=== PATIENT | male | born 1975 | race Caucasian/White ===

== ENCOUNTER 2017-11-11 21:29 | Emergency (ER) | payer MEDICAID ==
[~2017-11-11] VITALS: Ht 172.7 cm; Wt 74.1 kg
[~2017-11-11 21:29] MED LIST: CEPH500C5 PO; CLIN-80 PO; CYCL-1 PO; FLO0.4C PO; FLUO20CA39 PO; HYDR-3965 PO; IBUP-1986 PO
[2017-11-11 21:37] VITALS: BP 124/82
[2017-11-11] MEDS ORDERED: AZIT-63 PO (22:06)
[2017-11-11] MEDS ORDERED: ALBU8HFA INH (22:06)
[2017-11-11] MEDS ORDERED: GUAI473S11 PO (22:06)
[2017-11-11] MEDS ORDERED: PRED20TA PO (22:06)
== END 2017-11-11 22:50 | disposition home or self-care (01) ==
LOC: ER 21:30
DX: J20.9 Acute bronchitis, unspecified (principal); F17.200 Nicotine dependence, unspecified, uncomplicated; F15.10 Other stimulant abuse, uncomplicated; F12.10 Cannabis abuse, uncomplicated; Z79.899 Other long term (current) drug therapy
CPT/HCPCS: 99283

== ENCOUNTER → 2017-11-28 | Emergency (ER) | payer MEDICAID ==
[~2017-11-28] VITALS: Ht 172.7 cm; Wt 74.2 kg
[~2017-11-28] MED LIST changes: +ALBU8HFA INH; +AZIT-63 PO; +GUAI473S11 PO; -HYDR-3965 PO; +HYDROcodone/acetaminophen 5mg/325mg tablet PO ONE; +PRED20TA PO; +ketorolac trometh inj. 60 MG/2 ML VIAL IM ONE
[2017-11-28 10:27] VITALS: BP 120/85
== END | disposition home or self-care (01) ==
LOC: ER 08:48
DX: M79.1 Myalgia (principal); F12.10 Cannabis abuse, uncomplicated; F15.10 Other stimulant abuse, uncomplicated; Z79.899 Other long term (current) drug therapy
CPT/HCPCS: 71045; 93005; 96372; 99284; J1885

== ENCOUNTER 2017-12-30 13:56 | Emergency (ER) | payer MEDICAID ==
[~2017-12-30 13:56] MED LIST changes: +ASPI-1071 PO; +ATOR20TA66 PO; -AZIT-63 PO; -CEPH500C5 PO; -CLIN-80 PO; +COR3.125T PO; -CYCL-1 PO; -FLO0.4C PO; -FLUO20CA39 PO; +FURO-150 PO; -GUAI473S11 PO; -HYDROcodone/acetaminophen 5mg/325mg tablet PO ONE; -IBUP-1986 PO; +LISI2.5T2 PO; +POTA20TA10 PO; -PRED20TA PO; +TIOT4MIS5; -ketorolac trometh inj. 60 MG/2 ML VIAL IM ONE
[2017-12-30 14:06] VITALS: BP 111/61
[2017-12-30] MEDS ORDERED: IBUP-1984 PO (15:43)
== END 2017-12-30 15:51 | disposition home or self-care (01) ==
LOC: ER 13:56
DX: M79.605 Pain in left leg (principal); F17.200 Nicotine dependence, unspecified, uncomplicated; F12.10 Cannabis abuse, uncomplicated; F15.10 Other stimulant abuse, uncomplicated; Z79.82 Long term (current) use of aspirin; Z79.899 Other long term (current) drug therapy; V89.2XXA Person injured in unspecified motor-vehicle accident, traffic, initial encounter; Y93.55 Activity, bike riding; Y92.488 Other paved roadways as the place of occurrence of the external cause; Y99.8 Other external cause status
CPT/HCPCS: 29505; 73564; 99284

== ENCOUNTER 2018-01-02 16:30 | Emergency (ER) | payer MEDICAID ==
[~2018-01-02] VITALS: Ht 172.7 cm; Wt 58.6 kg
[~2018-01-02 16:30] MED LIST changes: +IBUP-1984 PO
[2018-01-02 16:49] VITALS: BP 125/68
[2018-01-02 17:03] LABS: BASOPHILS % (AUTO) 0.2 % (0-1); EOSINOPHILS # (AUTO) 0.6 X10'3 (0-0.9); HEMATOCRIT 43.7 % (42.0-52.0); HEMOGLOBIN 15.1 g/dl (14.0-17.9); LYMPHOCYTES # (AUTO) 1.6 X10'3 (1.1-4.8); LYMPHOCYTES % (AUTO) 11.2 % (21-51); MEAN CORPUSCULAR HEMOGLOBIN 29.1 PG (27.0-31.0); MEAN CORPUSCULAR HGB CONC 34.5 % (33.0-36.5); MEAN CORPUSCULAR VOLUME 84.2 FL (78-98); MEAN PLATELET VOLUME 7.9 FL (7.4-10.4); MONOCYTES # (AUTO) 1.1 X10'3 (0-0.9); MONOCYTES % (AUTO) 7.4 % (2-12); NEUTROPHILS # (AUTO) 11.3 X10'3 (1.8-7.7); NEUTROPHILS % (AUTO) 77.2 % (42-75); PLATELET COUNT 303 X10'3 (140-440); RED BLOOD COUNT 5.19 X10'6 (4.70-6.10); RED CELL DISTRIBUTION WIDTH 14.2 % (11.5-14.5); WHITE BLOOD COUNT 14.6 X10'3 (4.5-11.0)
[2018-01-02 17:13] LABS: PARTIAL THROMBOPLASTIN TIME 29 SECONDS (22-32); PROTHROMBIN TIME 10.6 SECONDS (9.0-12.0)
[2018-01-02 17:19] LABS: ALANINE AMINOTRANSFERASE 33 U/L (12-78); ALBUMIN 3.9 G/DL (3.4-5.0); ALBUMIN/GLOBULIN RATIO 1.1 (1.1-1.5); ALKALINE PHOSPHATASE 91 IU/L (46-116); ANION GAP 9 (8-16); ASPARTATE AMINO TRANSFERASE 17 U/L (10-37); BILIRUBIN,TOTAL 0.6 MG/DL (0.1-1.0); BLOOD UREA NITROGEN 12 MG/DL (7-18); BUN/CREATININE RATIO 10.2 (5.4-32.0); CALCIUM 9.2 MG/DL (8.5-10.1); CHLORIDE 103 MMOL/L (99-107); CREATININE 1.18 MG/DL (0.60-1.10); GLUCOSE 118 MG/DL (70-104); POTASSIUM 3.8 MMOL/L (3.5-5.1); SODIUM 139 MMOL/L (135-145); TOTAL CARBON DIOXIDE 26.9 MMOL/L (24-32); TOTAL PROTEIN 7.6 G/DL (6.4-8.2); eGFR 68 ML/MIN
== END 2018-01-02 22:06 | disposition left against medical advice (07) ==
LOC: ER 16:31
DX: R06.02 Shortness of breath (principal); Z53.21 Procedure and treatment not carried out due to patient leaving prior to being seen by health care provider
CPT/HCPCS: 36415; 71045; 80053; 84484; 85025; 85610; 85730; 93005; 99281

== ENCOUNTER → 2018-03-21 | Emergency (ER) | payer MEDICAID ==
[~2018-03-21] VITALS: Ht 172.7 cm; Wt 68.1 kg
[~2018-03-21] MED LIST changes: +HYDR-565 PO; +HYDROmorphone 1 mg/ml syringe IM ONE; -IBUP-1984 PO; +iohexol 350MG/ML 100ml bottle IV ONE; +ondansetron/PF 4mg/2ml inj IV ONE
[2018-03-21 09:03] LABS: MEAN PLATELET VOLUME 7.4 FL (7.4-10.4)
[2018-03-21 09:06] LABS: HEMATOCRIT 39.8 % (42.0-52.0); HEMOGLOBIN 13.1 g/dl (14.0-17.9); MEAN CORPUSCULAR HEMOGLOBIN 27.9 PG (27.0-31.0); MEAN CORPUSCULAR VOLUME 84.5 FL (78-98); PLATELET COUNT 543 X10'3 (140-440); RED BLOOD COUNT 4.71 X10'6 (4.70-6.10); RED CELL DISTRIBUTION WIDTH 15.4 % (11.5-14.5); WHITE BLOOD COUNT 11.9 X10'3 (4.5-11.0)
[2018-03-21 09:17] LABS: ALANINE AMINOTRANSFERASE 72 U/L (12-78); ALBUMIN 3.2 G/DL (3.4-5.0); ALBUMIN/GLOBULIN RATIO 0.7 (1.1-1.5); ALKALINE PHOSPHATASE 93 IU/L (46-116); ANION GAP 10 (8-16); ASPARTATE AMINO TRANSFERASE 39 U/L (10-37); BILIRUBIN,TOTAL 0.5 MG/DL (0.1-1.0); BLOOD UREA NITROGEN 11 MG/DL (7-18); CALCIUM 9.2 MG/DL (8.5-10.1); CHLORIDE 102 MMOL/L (99-107); CREATININE 0.92 MG/DL (0.60-1.10); GLUCOSE 120 MG/DL (70-104); POTASSIUM 4.3 MMOL/L (3.5-5.1); SODIUM 139 MMOL/L (135-145); TOTAL CARBON DIOXIDE 26.8 MMOL/L (24-32); TOTAL PROTEIN 7.8 G/DL (6.4-8.2); eGFR 90 ML/MIN
[2018-03-21 09:19] LABS: CLARITY,URINE CLEAR (Clear); COLOR,URINE YELLOW (Yellow); GLUCOSE, URINE NEGATIVE (Neg); KETONES,URINE NEGATIVE (Neg); LEUKOCYTE ESTERASE ,URINE NEGATIVE (Neg); NITRITES, URINE NEGATIVE (Neg); OCCULT BLOOD,URINE NEGATIVE (Neg); PROTEIN,URINE NEGATIVE (Neg); UROBILINOGEN,URINE 0.2 E.U/dL (0.2-1.0)
[2018-03-21 09:22] LABS: INR 1.1 INR; PARTIAL THROMBOPLASTIN TIME 35 SECONDS (22-32); PROTHROMBIN TIME 11.4 SECONDS (9.0-12.0)
[2018-03-21 09:29] LABS: URINE AMPHETAMINE SCREEN NEGATIVE (Neg); URINE BARBITUATE SCREEN NEGATIVE (Neg); URINE BENZODIAZEPINES SCREEN NEGATIVE (Neg); URINE CANNABINOID SCREEN POSITIVE (Neg); URINE COCAINE SCREEN NEGATIVE (Neg); URINE METHADONE SCREEN NEGATIVE (Neg); URINE OPIATE SCREEN NEGATIVE (Neg); URINE PHENCYCLIDINE SCREEN NEGATIVE (Neg)
[2018-03-21 09:30] LABS: UA COLLECTION TYPE CLN CATCH MIDSTREAM
[2018-03-21 10:11] LABS: PLATELET ESTIMATE INCREASED; TOTAL CELLS COUNTED 100
[2018-03-21 12:21] VITALS: BP 119/76
== END | disposition home or self-care (01) ==
LOC: ER 08:28
DX: I31.3 Pericardial effusion (noninflammatory) (principal); J90 Pleural effusion, not elsewhere classified; I50.9 Heart failure, unspecified; F17.200 Nicotine dependence, unspecified, uncomplicated; F12.10 Cannabis abuse, uncomplicated; F15.10 Other stimulant abuse, uncomplicated; Z79.82 Long term (current) use of aspirin
CPT/HCPCS: 36415; 71045; 71275; 80053; 80305; 81003; 84484; 85025; 85379; 85610; 85730; 93005; 93306; 96374; 96375; 99285; J1170; J2405; J7030; Q9967

== ENCOUNTER 2019-03-23 12:14 | Emergency (ER) | payer MEDICAID ==
[~2019-03-23] VITALS: Ht 172.7 cm; Wt 84.1 kg
[~2019-03-23 12:14] MED LIST changes: -HYDR-565 PO; -HYDROmorphone 1 mg/ml syringe IM ONE; -iohexol 350MG/ML 100ml bottle IV ONE; -ondansetron/PF 4mg/2ml inj IV ONE
[2019-03-23 12:52] LABS: BASOPHILS # (AUTO) 0.1 X10'3 (0-0.2); EOSINOPHILS # (AUTO) 0.4 X10'3 (0-0.9); EOSINOPHILS % (AUTO) 2.8 % (0-6); HEMATOCRIT 43.5 % (42.0-52.0); HEMOGLOBIN 15.2 g/dl (14.0-17.9); LYMPHOCYTES # (AUTO) 3.4 X10'3 (1.1-4.8); LYMPHOCYTES % (AUTO) 23.1 % (21-51); MEAN CORPUSCULAR HEMOGLOBIN 29.6 PG (27.0-31.0); MEAN CORPUSCULAR HGB CONC 34.8 g/dL (33.0-36.5); MEAN CORPUSCULAR VOLUME 85.1 FL (78-98); MEAN PLATELET VOLUME 8.6 FL (7.4-10.4); MONOCYTES # (AUTO) 1.1 X10'3 (0-0.9); MONOCYTES % (AUTO) 7.7 % (2-12); NEUTROPHILS # (AUTO) 9.7 X10'3 (1.8-7.7); NEUTROPHILS % (AUTO) 65.4 % (42-75); PLATELET COUNT 248 X10'3 (140-440); RED BLOOD COUNT 5.12 X10'6 (4.70-6.10); RED CELL DISTRIBUTION WIDTH 13.1 % (11.5-14.5); WHITE BLOOD COUNT 14.8 X10'3 (4.5-11.0)
[2019-03-23 13:10] LABS: ALANINE AMINOTRANSFERASE 25 U/L (12-78); ALBUMIN 3.8 G/DL (3.4-5.0); ALBUMIN/GLOBULIN RATIO 1.1 (1.1-1.5); ALKALINE PHOSPHATASE 101 IU/L (46-116); ANION GAP 4 (8-16); ASPARTATE AMINO TRANSFERASE 12 U/L (10-37); BILIRUBIN,TOTAL 0.6 MG/DL (0.1-1.0); BLOOD UREA NITROGEN 10 MG/DL (7-18); BUN/CREATININE RATIO 9.6 (5.4-32.0); CHLORIDE 104 MMOL/L (99-107); CREATININE 1.04 MG/DL (0.60-1.10); GLUCOSE 93 MG/DL (70-104); POTASSIUM 4.6 MMOL/L (3.5-5.1); SODIUM 136 MMOL/L (135-145); TOTAL CARBON DIOXIDE 28.3 MMOL/L (24-32); TOTAL PROTEIN 7.3 G/DL (6.4-8.2); eGFR 78 ML/MIN
[2019-03-23 13:11] LABS: PARTIAL THROMBOPLASTIN TIME 36 SECONDS (22-32)
[2019-03-23] MEDS ORDERED: TRAM50TA2 PO (14:44)
[2019-03-23 15:10] VITALS: BP 105/71
== END 2019-03-23 15:11 | disposition home or self-care (01) ==
LOC: ER 12:14
DX: G89.29 Other chronic pain (principal); M25.512 Pain in left shoulder; I50.9 Heart failure, unspecified; F12.90 Cannabis use, unspecified, uncomplicated; F15.90 Other stimulant use, unspecified, uncomplicated; Z86.711 Personal history of pulmonary embolism; Z79.82 Long term (current) use of aspirin; Z79.899 Other long term (current) drug therapy
CPT/HCPCS: 36415; 71045; 80053; 84484; 85025; 85610; 85730; 93005; 99284

== ENCOUNTER 2020-01-27 19:29 | Emergency (ER) | payer MEDICAID ==
[~2020-01-27] VITALS: Ht 172.7 cm; Wt 0.9 kg
[2020-01-27] MEDS ORDERED: ketorolac tromethamine 15mg/ml inj. IM ONE (21:05)
[2020-01-27 21:23] LABS: EOSINOPHILS # (AUTO) 0.3 X10'3 (0-0.9); EOSINOPHILS % (AUTO) 2.4 % (0-6); HEMOGLOBIN 14.8 g/dl (14.0-17.9); MEAN CORPUSCULAR HGB CONC 33.6 g/dL (33.0-36.5); MONOCYTES # (AUTO) 1.1 X10'3 (0-0.9); PLATELET COUNT 223 X10'3 (140-440); RED BLOOD COUNT 5.09 X10'6 (4.70-6.10)
[2020-01-27 21:24] LABS: BASOPHILS # (AUTO) 0.2 X10'3 (0-0.2); BASOPHILS % (AUTO) 1.2 % (0-1); HEMATOCRIT 44.2 % (42.0-52.0); LYMPHOCYTES % (AUTO) 22.2 % (21-51); MEAN CORPUSCULAR HEMOGLOBIN 29.1 PG (27.0-31.0); MEAN CORPUSCULAR VOLUME 86.8 FL (78-98); MONOCYTES % (AUTO) 8.3 % (2-12); NEUTROPHILS % (AUTO) 65.9 % (42-75); RED CELL DISTRIBUTION WIDTH 14.1 % (11.5-14.5); WHITE BLOOD COUNT 13.6 X10'3 (4.5-11.0)
[2020-01-27 21:36] LABS: ALANINE AMINOTRANSFERASE 22 U/L (12-78); ALBUMIN 3.9 G/DL (3.4-5.0); ALBUMIN/GLOBULIN RATIO 1.3 (1.1-1.5); ALKALINE PHOSPHATASE 95 IU/L (46-116); ANION GAP 9 (8-16); ASPARTATE AMINO TRANSFERASE 5 U/L (10-37); BILIRUBIN,TOTAL 0.2 MG/DL (0.1-1.0); BLOOD UREA NITROGEN 15 MG/DL (7-18); CALCIUM 8.8 MG/DL (8.5-10.1); CHLORIDE 108 MMOL/L (99-107); CREATININE 1.07 MG/DL (0.60-1.10); GLUCOSE 103 MG/DL (70-104); POTASSIUM 3.8 MMOL/L (3.5-5.1); SODIUM 143 MMOL/L (135-145); TOTAL CARBON DIOXIDE 25.9 MMOL/L (24-32); eGFR 75 ML/MIN
[2020-01-27] MEDS ORDERED: morphine 2 MG/ML inj. syringe IV ONE ×3 (21:55→23:20)
[2020-01-27] MEDS ORDERED: iohexol 300mg/ml 100ml inj. ONE (22:04)
[2020-01-27] MEDS ORDERED: AMOX-117 PO (23:58)
[2020-01-27] MEDS ORDERED: IBUP-1984 PO (23:58)
[2020-01-28 00:06] VITALS: BP 125/77
== END 2020-01-28 00:07 | disposition home or self-care (01) ==
LOC: ER 19:29
DX: M54.2 Cervicalgia (principal); I50.9 Heart failure, unspecified; F15.90 Other stimulant use, unspecified, uncomplicated; F12.90 Cannabis use, unspecified, uncomplicated; Z86.711 Personal history of pulmonary embolism; Z72.89 Other problems related to lifestyle; Z79.01 Long term (current) use of anticoagulants; Z79.82 Long term (current) use of aspirin; Z79.899 Other long term (current) drug therapy
CPT/HCPCS: 36415; 70491; 80053; 85025; 96372; 96374; 96376; 99285; J1885; J2270; Q9967

== ENCOUNTER 2021-03-27 17:46 | Emergency (ER) | payer MEDICAID ==
[~2021-03-27] VITALS: Ht 172.7 cm; Wt 80.5 kg
[2021-03-27] MEDS ORDERED: acetaminophen 325mg tablet PO ONE (18:35)
[2021-03-27] MEDS ORDERED: hydrOXYzine 25 MG tablet PO ONE (18:35)
[2021-03-27] MEDS ORDERED: aspirin 325mg tablet PO ONE (18:35)
[2021-03-27 18:44] LABS: ALANINE AMINOTRANSFERASE 35 U/L (12-78); ALBUMIN 3.6 G/DL (3.4-5.0); ALKALINE PHOSPHATASE 110 IU/L (46-116); ANION GAP 12 (8-16); ASPARTATE AMINO TRANSFERASE 13 U/L (10-37); BILIRUBIN,TOTAL 0.6 MG/DL (0.1-1.0); BLOOD UREA NITROGEN 11 MG/DL (7-18); BUN/CREATININE RATIO 12.6 (5.4-32.0); CALCIUM 8.6 MG/DL (8.5-10.1); CHLORIDE 102 MMOL/L (99-107); CREATININE 0.87 MG/DL (0.60-1.10); GLUCOSE 100 MG/DL (70-104); SODIUM 140 MMOL/L (135-145); TOTAL CARBON DIOXIDE 26.4 MMOL/L (24-32); TOTAL PROTEIN 7.2 G/DL (6.4-8.2); eGFR > 90 ML/MIN
[2021-03-27 18:56] LABS: BASOPHILS # (AUTO) 0.1 X10'3 (0-0.2); BASOPHILS % (AUTO) 0.7 % (0-1); EOSINOPHILS # (AUTO) 0.5 X10'3 (0-0.9); HEMATOCRIT 41.5 % (42.0-52.0); HEMOGLOBIN 14.2 g/dl (14.0-17.9); MEAN CORPUSCULAR HEMOGLOBIN 30.4 PG (27.0-31.0); MEAN CORPUSCULAR HGB CONC 34.1 g/dL (33.0-36.5); MEAN CORPUSCULAR VOLUME 88.9 FL (78-98); MEAN PLATELET VOLUME 8.5 FL (7.4-10.4); MONOCYTES # (AUTO) 1.3 X10'3 (0-0.9); MONOCYTES % (AUTO) 10.1 % (2-12); NEUTROPHILS # (AUTO) 7.4 X10'3 (1.8-7.7); NEUTROPHILS % (AUTO) 55.2 % (42-75); PLATELET COUNT 267 X10'3 (140-440); RED BLOOD COUNT 4.67 X10'6 (4.70-6.10); RED CELL DISTRIBUTION WIDTH 13.7 % (11.5-14.5); WHITE BLOOD COUNT 13.3 X10'3 (4.5-11.0)
[2021-03-27 19:56] VITALS: BP 112/69
== END 2021-03-27 20:09 | disposition home or self-care (01) ==
LOC: ER 17:47
DX: R07.89 Other chest pain (principal); R06.02 Shortness of breath; I50.9 Heart failure, unspecified; F12.90 Cannabis use, unspecified, uncomplicated; F15.90 Other stimulant use, unspecified, uncomplicated; Z86.711 Personal history of pulmonary embolism; Z72.89 Other problems related to lifestyle; Z79.82 Long term (current) use of aspirin; Z79.899 Other long term (current) drug therapy
CPT/HCPCS: 36415; 71045; 80053; 83880; 84484; 85025; 85379; 93005; 99285; Q0177

== ENCOUNTER 2022-11-01 10:27 | Emergency (ER) | payer MEDICAID ==
[~2022-11-01] VITALS: Ht 172.7 cm; Wt 81.8 kg
[~2022-11-01 10:27] MED LIST changes: +LISI2.5T14 PO; -LISI2.5T2 PO; +POTA-197 PO; -POTA20TA10 PO
[2022-11-01 10:32] VITALS: BP 122/77
[2022-11-01] MEDS ORDERED: SACU1TAB PO (11:13)
[2022-11-01] MEDS ORDERED: amox tr/potassium clavulanate 500mg/125mg TAB PO ONE (11:55)
[2022-11-01] MEDS ORDERED: ketorolac trometh. 30mg/ml inj. IM ONE (11:55)
[2022-11-01] MEDS ORDERED: OXYcodone (OXYCONTIN) Ext Release 15 MG TAB.SR.12H PO ONE (11:55)
[2022-11-01] MEDS ORDERED: ondansetron 4mg rapidly disintigrating tab PO ONE (11:55)
[2022-11-01] MEDS ORDERED: DOXYCYCLINE 100MG CAPSULE PO STA (11:55)
[2022-11-01] MEDS ORDERED: MELO-100 PO (12:02)
[2022-11-01] MEDS ORDERED: AMOX-419 PO (12:02)
[2022-11-01] MEDS ORDERED: ONDA8TAB13 PO (12:02)
[2022-11-01] MEDS ORDERED: DOXY100C76 PO (12:02)
== END 2022-11-01 12:38 | disposition home or self-care (01) ==
LOC: ER 10:27
DX: L03.211 Cellulitis of face (principal); K13.0 Diseases of lips; I50.9 Heart failure, unspecified; F12.90 Cannabis use, unspecified, uncomplicated; F15.90 Other stimulant use, unspecified, uncomplicated; Z72.89 Other problems related to lifestyle; Z86.711 Personal history of pulmonary embolism; Z79.82 Long term (current) use of aspirin; Z79.899 Other long term (current) drug therapy
CPT/HCPCS: 96372; 99283; J1885

== ENCOUNTER 2022-11-02 09:40 | Emergency (ER) | payer MEDICAID ==
[~2022-11-02 09:40] MED LIST changes: +AMOX-419 PO; -ASPI-1071 PO; -ATOR20TA66 PO; +DOXY100C76 PO; -FURO-150 PO; +MELO-100 PO; +ONDA8TAB13 PO; -POTA-197 PO; +SACU1TAB PO
[2022-11-03] MEDS ORDERED: ACYC-1 PO (14:52)
== END 2022-11-02 11:27 | disposition left against medical advice (07) ==
LOC: ER 09:40
DX: R22.0 Localized swelling, mass and lump, head (principal); Z53.21 Procedure and treatment not carried out due to patient leaving prior to being seen by health care provider

== ENCOUNTER 2022-11-03 10:19 | Emergency (ER) | payer MEDICAID ==
[~2022-11-03] VITALS: Ht 172.7 cm; Wt 92.0 kg
--- NOTE | 2022-11-03 10:43 | NUR ---
first contact. pt is ao4 speaks clearly denies issues swallowing. affected area is bottom lip rt side and affects jawline. pt also has swelling on neck. soft to palp.
[2022-11-03] MEDS ORDERED: ketorolac trometh. 30mg/ml inj. IV ONE (11:50)
[2022-11-03] MEDS ORDERED: acyclovir 200 MG capsule PO ONE (11:50)
[2022-11-03] MEDS ORDERED: acetaminophen 325mg tablet PO ONE (11:50)
[2022-11-03] MEDS ORDERED: iohexol 300mg/ml 100ml inj. ONE (11:53)
[2022-11-03] MEDS ORDERED: ACYC-1 PO (14:52)
[2022-11-03 15:04] VITALS: BP 109/59
== END 2022-11-03 15:06 | disposition home or self-care (01) ==
LOC: ER 10:20
DX: B00.9 Herpesviral infection, unspecified (principal); K04.7 Periapical abscess without sinus; I50.9 Heart failure, unspecified; F15.20 Other stimulant dependence, uncomplicated; F12.90 Cannabis use, unspecified, uncomplicated
CPT/HCPCS: 70491; 96374; 99285; J1885; J3490; J7030; Q9967

== ENCOUNTER 2022-12-27 14:51 | Emergency (ER) | payer MEDICAID ==
[~2022-12-27 14:51] MED LIST changes: -AMOX-419 PO; -DOXY100C76 PO
[2022-12-28] MEDS ORDERED: HYDR-3965 PO (13:24)
== END 2022-12-28 01:25 | disposition left against medical advice (07) ==
LOC: ER 14:51
DX: M79.603 Pain in arm, unspecified (principal); Z53.21 Procedure and treatment not carried out due to patient leaving prior to being seen by health care provider

== ENCOUNTER 2022-12-28 09:21 | Emergency (ER) | payer MEDICAID ==
[~2022-12-28] VITALS: Ht 172.7 cm; Wt 93.0 kg
[2022-12-28 09:51] VITALS: BP 108/72
--- NOTE | 2022-12-28 10:13 | NUR ---
SPOKE WITH MD REGARDING PT BEING ON THINNERS AND HITTING HIS HEAD. VERBAL FOR HEAD CT
[2022-12-28] MEDS ORDERED: HYDROcodone/acetaminophen 10/325mg tab PO ONE (13:15)
[2022-12-28] MEDS ORDERED: HYDR-3965 PO (13:24)
== END 2022-12-28 13:51 | disposition home or self-care (01) ==
LOC: ER 09:22
DX: S60.221A Contusion of right hand, initial encounter (principal); W18.39XA Other fall on same level, initial encounter; Y93.89 Activity, other specified; Y92.89 Other specified places as the place of occurrence of the external cause; Y99.8 Other external cause status
CPT/HCPCS: 29125; 70450; 73130; 99284; A6449

== ENCOUNTER 2023-02-10 13:49 | Emergency (ER) | payer MEDICAID ==
[~2023-02-10] VITALS: Ht 172.7 cm; Wt 95.0 kg
[~2023-02-10 13:49] MED LIST changes: -TIOT4MIS5; +TIOT4MIS5 IH
[2023-02-10 13:52] VITALS: BP 107/79
[2023-02-10] MEDS ORDERED: LIDOcaine 1% W/epiNEPHrine 1:100,000 20ml vial SQ ONE (15:30)
[2023-02-10] MEDS ORDERED: CEPH500C81 PO ×2 (16:17)
[2023-02-10] MEDS ORDERED: SULF1TAB49 PO ×2 (16:17)
[2023-02-10] MEDS ORDERED: cephalexin 500mg capsule PO ONE (16:20)
[2023-02-10] MEDS ORDERED: sulfamethoxazole/trimethoprim DS (800/160mg) tablet PO ONE (16:20)
[2023-02-11] MEDS ORDERED: CARV6.253 PO (12:48)
[2023-02-11] MEDS ORDERED: OLAN20TA34 PO (12:49)
[2023-02-11] MEDS ORDERED: SERT-434 PO (12:50)
[2023-02-11] MEDS ORDERED: HYDR-3972 PO (12:50)
[2023-02-11] MEDS ORDERED: ATOR40TA72 PO (12:50)
[2023-02-11] MEDS ORDERED: PANT20TA18 PO (12:51)
[2023-02-11] MEDS ORDERED: SERT-433 PO (12:51)
[2023-02-11] MEDS ORDERED: APIX5TAB3 PO (12:53)
[2023-02-11] MEDS ORDERED: ERGO500093 PO (12:54)
== END 2023-02-10 16:40 | disposition home or self-care (01) ==
LOC: ER 13:49
DX: L02.416 Cutaneous abscess of left lower limb (principal); B35.6 Tinea cruris; I50.9 Heart failure, unspecified; F12.10 Cannabis abuse, uncomplicated; F15.10 Other stimulant abuse, uncomplicated; Z79.899 Other long term (current) drug therapy; Z79.1 Long term (current) use of non-steroidal anti-inflammatories (NSAID); Z79.2 Long term (current) use of antibiotics
CPT/HCPCS: 10060; 99284; A6449

== ENCOUNTER 2023-02-11 07:59 | Inpatient (IN) | payer MEDICAID ==
[~2023-02-11] VITALS: Ht 172.7 cm; Wt 95.5 kg
[~2023-02-11 07:59] MED LIST changes: +CEPH500C81 PO; +SULF1TAB49 PO
[2023-02-11] MEDS ORDERED: LIDOcaine 1% W/epiNEPHrine 1:100,000 20ml vial IJ ONE (08:40)
--- NOTE | 2023-02-11 08:46 | NUR ---
MD DR ROSA AT BEDSIDE.
[2023-02-11 09:09] LABS: BASOPHILS # (AUTO) 0.1 X10'3 (0-0.2); BASOPHILS % (AUTO) 0.4 % (0-1); EOSINOPHILS # (AUTO) 0.3 X10'3 (0-0.9); EOSINOPHILS % (AUTO) 1.4 % (0-6); HEMATOCRIT 40.7 % (42.0-52.0); LYMPHOCYTES # (AUTO) 2.3 X10'3 (1.1-4.8); LYMPHOCYTES % (AUTO) 12.3 % (21-51); MEAN CORPUSCULAR HEMOGLOBIN 30.3 PG (27.0-31.0); MEAN CORPUSCULAR HGB CONC 34.3 g/dL (33.0-36.5); MEAN CORPUSCULAR VOLUME 88.3 FL (78-98); MEAN PLATELET VOLUME 8.7 FL (7.4-10.4); MONOCYTES # (AUTO) 1.4 X10'3 (0-0.9); MONOCYTES % (AUTO) 7.4 % (2-12); NEUTROPHILS # (AUTO) 14.5 X10'3 (1.8-7.7); NEUTROPHILS % (AUTO) 78.5 % (42-75); PLATELET COUNT 214 X10'3 (140-440); RED BLOOD COUNT 4.61 X10'6 (4.70-6.10); RED CELL DISTRIBUTION WIDTH 13.9 % (11.5-14.5); WHITE BLOOD COUNT 18.4 X10'3 (4.5-11.0)
[2023-02-11] MEDS ORDERED: vancomycin/NS 1 GM ADD-VANTAGE 250 ML IV ONE (09:15)
[2023-02-11] MEDS ORDERED: piperacillin/tazo 3.375gm/50ml 50 ML IV ONE (09:15)
[2023-02-11] MEDS ORDERED: normal saline 1000ML IV soln IVB ONE (09:15)
[2023-02-11 09:25] LABS: ALANINE AMINOTRANSFERASE 22 U/L (12-78); ALBUMIN 4.1 G/DL (3.4-5.0); ALBUMIN/GLOBULIN RATIO 1.1 (1.1-1.5); ALKALINE PHOSPHATASE 94 IU/L (46-116); ANION GAP 12 (8-16); ASPARTATE AMINO TRANSFERASE 10 U/L (10-37); BILIRUBIN,TOTAL 0.9 MG/DL (0.1-1.0); BLOOD UREA NITROGEN 14 MG/DL (7-18); BUN/CREATININE RATIO 14.3 (10.0-20.0); CALCIUM 9.1 MG/DL (8.5-10.1); CHLORIDE 103 MMOL/L (99-107); CREATININE 0.98 MG/DL (0.60-1.10); GLUCOSE 116 MG/DL (70-104); POTASSIUM 3.8 MMOL/L (3.5-5.1); SODIUM 140 MMOL/L (135-145); TOTAL CARBON DIOXIDE 24.6 MMOL/L (24-32); TOTAL PROTEIN 7.8 G/DL (6.4-8.2); eGFR 82 ML/MIN
--- NOTE | 2023-02-11 10:29 | NUR ---
2ND RN AT BEDSIDE TRYING TO OBTAIN IV.
[2023-02-11] MEDS ORDERED: magnesium hydroxide 30ml (MOM) UD suspension PO PRN (10:45)
[2023-02-11] MEDS ORDERED: HYDROcodone/acetaminophen 5mg/325mg tablet PO PRN (10:45)
[2023-02-11] MEDS ORDERED: HYDROmorphone inj. 0.5 MG/0.5 ML DISP.SYRIN IV PRN (10:45)
[2023-02-11] MEDS ORDERED: potassium Cl 40MEQ/1/2NS 520ml 520 ML IV PRN (10:45)
[2023-02-11] MEDS ORDERED: magnesium Cl slow-release 64mg tablet PO PRN (10:45)
[2023-02-11] MEDS ORDERED: potassium Cl 20 mEq SR tablet PO PRN ×2 (10:45)
[2023-02-11] MEDS ORDERED: HYDROmorphone/PF 0.2 MG/ML SYRINGE IV PRN (10:45)
[2023-02-11] MEDS ORDERED: magnesium 2GM in 50ml NS 50 ML IV PRN (10:45)
[2023-02-11] MEDS ORDERED: mag hydrox/Alum hydrox/simeth 30ml oral suspension PO PRN (10:45)
[2023-02-11] MEDS ORDERED: ondansetron 4mg rapidly disintigrating tab PO PRN (10:45)
[2023-02-11] MEDS ORDERED: acetaminophen 325mg tablet PO PRN ×2 (10:45)
[2023-02-11] MEDS ORDERED: HYDROcodone/acetaminophen 10/325mg tab PO PRN (10:45)
[2023-02-11] MEDS ORDERED: normal saline 1000ml 1,000 ML IV SCH (10:45)
[2023-02-11] MEDS ORDERED: acetaminophen 650mg rectal suppository RC PRN (10:45)
[2023-02-11] MEDS ORDERED: ondansetron/PF 4mg/2ml inj IV PRN (10:45)
[2023-02-11] MEDS ORDERED: magnesium 4gm in 100ml NS 100 ML IV PRN (10:45)
--- NOTE | 2023-02-11 10:46 | NUR ---
RN COULD NOT SCAN FOR ZOSYN AND NS REQ [place] FROM REGISTRATION.
[2023-02-11] MEDS ORDERED: iohexol 300mg/ml 100ml inj. ONE (11:11)
[2023-02-11 11:18] LABS: APTT 31 SECONDS (22-32)
--- NOTE | 2023-02-11 11:38 | NUR ---
PT RECD ZOSYN PRIOR TO VANCO D/T CAUTION WITH COMPATIBILITY. RN NOTIFIED PHARM TO RETIME VANCOMYCIN.
[2023-02-11] MEDS ORDERED: VANCOmycin 1250MG/NS 250ml Bag 250 ML IV SCH (12:00)
--- NOTE | 2023-02-11 12:03 | NUR ---
RN PAGED DR BARBER REQ ARI PATCH AND ANXIETY MED FOR PT.
--- NOTE | 2023-02-11 12:10 | NUR ---
RN PAGED DR BARBER TO REQ ANXIETY MED AND ARI PATCH FOR PT.
--- NOTE | 2023-02-11 12:46 | NUR ---
RN CLEANED LEFT HIP WITH IODINE AND APPLIED A NON STICK BANDAGE.
[2023-02-11] MEDS ORDERED: CARV6.253 PO (12:48)
[2023-02-11] MEDS ORDERED: OLAN20TA34 PO (12:49)
[2023-02-11] MEDS ORDERED: SERT-434 PO (12:50)
[2023-02-11] MEDS ORDERED: HYDR-3972 PO (12:50)
[2023-02-11] MEDS ORDERED: ATOR40TA72 PO (12:50)
[2023-02-11] MEDS ORDERED: SERT-433 PO (12:51)
[2023-02-11] MEDS ORDERED: PANT20TA18 PO (12:51)
[2023-02-11 12:53] VITALS: BP 132/82
[2023-02-11] MEDS ORDERED: APIX5TAB3 PO (12:53)
[2023-02-11] MEDS ORDERED: ERGO500093 PO (12:54)
--- NOTE | 2023-02-11 12:57 | NUR ---
PT VERY ANXIOUS AND STATING HE MAY LEAVE AMA. RN EDUCATED HIM ON THE RISKS ASSOCIATED WITH LEAVING AMA AND NOT GETTING A RX FOR ANTIBIOTICS AND HE VERBALIZED UNDERSTANDING. PT AGREED TO STAY UNTIL [place] DONE INFUSING. RN PAGED DR BARBER THAT PT IS ANXIOUS AND MAY LEAVE AMA.
[2023-02-11] MEDS ORDERED: nicotine 14mg patch - 24hr TD ONE (13:20)
[2023-02-11] MEDS ORDERED: sertraline 50mg tablet PO SCH ×2 (13:20→13:34)
[2023-02-11] MEDS ORDERED: LORazepam 2 mg/ml vial IV PRN (13:20)
[2023-02-11] MEDS ORDERED: LORazepam 1 MG tablet PO PRN (13:20)
--- NOTE | 2023-02-11 14:19 | NUR ---
RN UNABLE TO USE SCANNER EVEN AFTER GETTING NEW ID BAND FROM REG. REQ [facility]ONA CONTACT IT.
--- NOTE | 2023-02-11 14:25 | NUR ---
PT WANTS TO SIGN AMA FORM AND LEAVE DESPITE BEING EDUCATED BY RN ABOUT RISKS OF NOT GETTING ANTIBIOTICS. RN PAGED DR BARBER TO NOTIFY HIM. PAGED MESSAGE AND PAGED TO CALL ED BACK.
--- NOTE | 2023-02-11 14:28 | NUR ---
PER DR BARBER HE CALLED BACK AND STATED THAT HE CAN NOT COME SIGN THE FORM NOW AND RN MAY TAKE A VERBAL
[2023-02-11] MEDS ORDERED: piperacillin/tazo 3.375gm/50ml 50 ML IV SCH (16:00)
[2023-02-11] MEDS ORDERED: K and/or MAG REPLACEMENT MC SCH (20:00)
[2023-02-11] MEDS ORDERED: HYDROcodone/acetaminophen 10/325mg tab PO SCH (20:00)
[2023-02-11] MEDS ORDERED: docusate sod 100mg capsule PO SCH (20:00)
[2023-02-11] MEDS ORDERED: sacubitril/valsartan 24mg-26mg tablet PO SCH (20:00)
[2023-02-11] MEDS ORDERED: carvedilol 6.25mg tablet PO SCH (20:00)
[2023-02-11] MEDS ORDERED: temazepam 15mg capsule PO PRN (21:00)
[2023-02-12] MEDS ORDERED: ipratropium 0.5 MG/2.5ML nebule NEB SCH (08:00)
[2023-02-12] MEDS ORDERED: pantoprazole 40mg Tablet.DR PO SCH (08:00)
[2023-02-12] MEDS ORDERED: atorvastatin 20mg tablet PO SCH (08:00)
[2023-02-12] MEDS ORDERED: nicotine 14mg patch - 24hr TD SCH (08:00)
[2023-02-12] MEDS ORDERED: sertraline 50mg tablet PO SCH (08:00)
[2023-02-12] MEDS ORDERED: VANCOMYCIN LEVEL IV ONE (23:30)
== END 2023-02-11 14:30 | disposition left against medical advice (07) | DRG 383 ==
LOC: ER 08:00 → ED HOLD 10:54
PROVIDERS: ADMIT Family Medicine; ATTEND Family Medicine
PROC: 0Y9D0ZZ Drainage of Left Upper Leg, Open Approach (ICD-10-PCS; principal; 2023-02-11)
PROC: BQ2S1ZZ Computerized Tomography (CT Scan) of Left Lower Extremity using Low Osmolar Contrast (ICD-10-PCS; 2023-02-11)
DX: L03.116 Cellulitis of left lower limb (principal); I50.9 Heart failure, unspecified; F17.210 Nicotine dependence, cigarettes, uncomplicated; F41.1 Generalized anxiety disorder; Z53.29 Procedure and treatment not carried out because of patient's decision for other reasons; Z60.2 Problems related to living alone; K29.70 Gastritis, unspecified, without bleeding; I48.91 Unspecified atrial fibrillation; J44.9 Chronic obstructive pulmonary disease, unspecified; Z79.01 Long term (current) use of anticoagulants; Z86.711 Personal history of pulmonary embolism; Z86.73 Personal history of transient ischemic attack (TIA), and cerebral infarction without residual deficits; Z79.899 Other long term (current) drug therapy; Z71.6 Tobacco abuse counseling
CPT/HCPCS: 36415; 73701; 80053; 83605; 84145; 85025; 85610; 85730; 87040; 96365; 99285; A6258; A6266; A6449; G0378; J2405; J2543; J3370; J3490; J7030; Q9967

== ENCOUNTER 2023-11-25 11:07 | Emergency (ER) | payer MEDICAID ==
[~2023-11-25] VITALS: Ht 172.7 cm; Wt 107.1 kg
[~2023-11-25 11:07] MED LIST changes: -ALBU8HFA INH; +APIX5TAB3 PO; +ATOR40TA72 PO; +CARV6.253 PO; -CEPH500C81 PO; -COR3.125T PO; +ERGO500093 PO; +HYDR-3972 PO; -LISI2.5T14 PO; -MELO-100 PO; +OLAN20TA34 PO; -ONDA8TAB13 PO; +PANT20TA18 PO; +SERT-433 PO; +SERT-434 PO; -SULF1TAB49 PO
[2023-11-25 14:36] LABS: BASOPHILS # (AUTO) 0.1 X10'3 (0-0.2); BASOPHILS % (AUTO) 1.2 % (0-1); EOSINOPHILS # (AUTO) 0.6 X10'3 (0-0.9); EOSINOPHILS % (AUTO) 5.9 % (0-6); HEMATOCRIT 36.2 % (42.0-52.0); HEMOGLOBIN 12.2 g/dl (14.0-17.9); LYMPHOCYTES % (AUTO) 30.6 % (21-51); MEAN CORPUSCULAR HEMOGLOBIN 28.7 PG (27.0-31.0); MEAN CORPUSCULAR HGB CONC 33.7 g/dL (33.0-36.5); MEAN CORPUSCULAR VOLUME 85.2 FL (78-98); MONOCYTES # (AUTO) 0.7 X10'3 (0-0.9); MONOCYTES % (AUTO) 6.8 % (2-12); NEUTROPHILS # (AUTO) 5.4 X10'3 (1.8-7.7); NEUTROPHILS % (AUTO) 55.5 % (42-75); PLATELET COUNT 193 X10'3 (140-440); RED BLOOD COUNT 4.25 X10'6 (4.70-6.10); RED CELL DISTRIBUTION WIDTH 15.9 % (11.5-14.5); WHITE BLOOD COUNT 9.8 X10'3 (4.5-11.0)
[2023-11-25 14:59] LABS: ALBUMIN 3.6 G/DL (3.4-5.0); ANION GAP 6 (8-16); BLOOD UREA NITROGEN 10 MG/DL (7-18); BUN/CREATININE RATIO 11.8 (10.0-20.0); CALCIUM 8.2 MG/DL (8.5-10.1); CHLORIDE 107 MMOL/L (99-107); CREATININE 0.85 MG/DL (0.60-1.10); GLUCOSE 99 MG/DL (70-104); PRO BRAIN NATRIURETIC PEPTIDE 192 PG/ML (0-125); SODIUM 143 MMOL/L (135-145); TOTAL CARBON DIOXIDE 30.1 MMOL/L (24-32); eCRCL 103 ML/MIN; eGFR > 90 ML/MIN
[2023-11-25] MEDS ORDERED: FURO-150 PO (15:08)
[2023-11-25] MEDS ORDERED: POTA-205 PO (15:08)
[2023-11-25 15:15] VITALS: BP 114/78; PULSE 81; RESP 18; TEMP 98.4; O2SAT 94
[2023-11-25] MEDS: furosemide 10 MG/1 ML 10ml inj IV ONE (15:41)
== END 2023-11-25 16:41 | disposition home or self-care (01) ==
LOC: ER 11:07
DX: G56.02 Carpal tunnel syndrome, left upper limb (principal); R06.00 Dyspnea, unspecified; R60.9 Edema, unspecified; I50.9 Heart failure, unspecified; F15.90 Other stimulant use, unspecified, uncomplicated; F12.90 Cannabis use, unspecified, uncomplicated; Z79.899 Other long term (current) drug therapy; Z79.1 Long term (current) use of non-steroidal anti-inflammatories (NSAID)
CPT/HCPCS: 29125; 36415; 71045; 80048; 83880; 84484; 85025; 93005; 96374; 99285; J1940